=== PATIENT | female | born 1980 | race Two or more races ===

== ENCOUNTER 2019-09-28 13:04 | Emergency (ER) | payer OTHER ==
[~2019-09-28] VITALS: Ht 170.2 cm; Wt 77.1 kg
--- NOTE | 2019-09-28 13:28 | NUR ---
ED Nurse Note: Pt ambulated to ED from home d/t dizziness/light headedness, vomiting and diarrhea since this morning. Pt is AOx4, calm and cooperative. VSS, on RA, afebrile on triage. Pt denies any loss of consciousness. Placed on bed and gown; hooked to engine monitor. ERPA at bedside.
[2019-09-28 13:30] VITALS: BP 126/81
[2019-09-28] MEDS ORDERED: Ketorolac 30mg Inj IV ONE (13:30)
[2019-09-28] MEDS ORDERED: Dicyclomine HCl 10mg/5ml oral soln ORAL ONE (13:30)
--- NOTE | 2019-09-28 13:30 | NUR ---
ED Nurse Note: IV established, meds given; hydration infusing well on site. Blood and urine specimen sent to labs.
[2019-09-28] MEDS ORDERED: Meclizine 25mg tab ORAL PRN (13:45)
[2019-09-28 13:55] LABS: BASOPHILS % (AUTO) 0.9 % (0.0-2.0); EOSINOPHILS % (AUTO) 1.4 % (0.0-3.0); HEMATOCRIT 34.9 % (37.0-47.0); HEMOGLOBIN 11.7 G/DL (12.0-16.0); LYMPHOCYTES % (AUTO) 30.5 % (20.0-45.0); MEAN CORPUSCULAR VOLUME 75 FL (80-99); MONOCYTES % (AUTO) 9.4 % (1.0-10.0); NEUTROPHILS % (AUTO) 57.8 % (45.0-75.0); PLATELET COUNT 355 K/UL (150-450); RED BLOOD COUNT 4.67 M/UL (4.20-5.40); RED CELL DISTRIBUTION WIDTH 11.8 % (11.6-14.8); WHITE BLOOD COUNT 7.1 K/UL (4.8-10.8)
[2019-09-28 13:59] LABS: ANION GAP 11 mmol/L (5-15); APPEARANCE,URINE SLIGHTLY CLOUDY; BILIRUBIN, URINE NEGATIVE (NEGATIVE); BLOOD UREA NITROGEN 12 mg/dL (7-18); CALCIUM 9.1 MG/DL (8.5-10.1); CARBON DIOXIDE 25 MMOL/L (21-32); CHLORIDE 102 MMOL/L (98-107); CREATININE 0.7 MG/DL (0.55-1.30); GLUCOSE, URINE (UA) NEGATIVE (NEGATIVE); KETONES,URINE NEGATIVE (NEGATIVE); LEUKOCYTE ESTERASE ,URINE 1+ (NEGATIVE); NITRITE,URINE NEGATIVE (NEGATIVE); PH,URINE 5 (4.5-8.0); POTASSIUM 3.6 MMOL/L (3.5-5.1); PROTEIN,URINE NEGATIVE (NEGATIVE); SODIUM 138 MMOL/L (136-145); UROBILINOGEN,URINE NORMAL MG/DL (0.0-1.0)
[2019-09-28 14:01] LABS: COLOR,URINE YELLOW
[2019-09-28 14:04] LABS: ALANINE AMINOTRANSFERASE 23 U/L (12-78); ALBUMIN 4.2 G/DL (3.4-5.0); ALBUMIN/GLOBULIN RATIO 1.2 (1.0-2.7); ALKALINE PHOSPHATASE 77 U/L (46-116); ASPARTATE AMINO TRANSFERASE 22 U/L (15-37); BILIRUBIN,TOTAL 0.4 MG/DL (0.2-1.0)
--- NOTE | 2019-09-28 14:26 | Emergency Room Report ---
History of Present Illness General Chief Complaint: Dizziness Source: Patient Present Illness HPI 39-year-old female with no significant past medical history here complaining of 1 day of multiple bouts of nonbloody emesis, nonbloody diarrhea, feeling weak feeling dizzy after emesis. Reports that the dizziness does not get worse with changing of the position of her head however gets worse when standing and sitting. Has not taken medication for symptom relief. Denies any fever and chills, cough and congestion, shortness of breath, loss of taste and smell. Reports that her period ended 2 days ago. Denies . Denies any urinary frequency and urgency. Denies traveling or coming out of house during the pandemic. Appears to be afebrile with normal vital signs. Denies any tobacco smoke, alcohol intake, drug use. Denies any fall or injury. Denies any syncope at this time. Denies any changes of vision, hearing loss and vertigo. Neurovascularly intact and no unilateral generalized weakness noted. Patient speaking in full sentences. Denies any cardiac or neurological history Allergies: Coded Allergies: No Known Allergies (Unverified , 09/28/19) COVID-19 Screening Contact w/high risk pt: No Recent Travel to affected area: No Experienced COVID-19 symptoms?: No COVID-19 Testing performed [place]: No Patient History Past Medical History: see triage record Past Surgical History: none Pertinent Family History: none Last Menstrual Period: 09/23/19 Now: No Immunizations: UTD Reviewed Nursing Documentation: PMH: Agreed; PSxH: Agreed Nursing Documentation-PMH Past Medical History: No Stated History Review of Systems All Other Systems: negative except mentioned in HPI Physical Exam Vital Signs Date Time Temp Pulse Resp B/P (MAP) Pulse Ox O2 Delivery O2 Flow Rate FiO2 09/28/19 13:13 99.1 92 16 126/81 (96) 96 Room Air Sp02 EP Interpretation: reviewed, normal General Appearance: no apparent distress, alert, GCS 15, non-toxic Head: normocephalic, atraumatic Eyes: bilateral eye normal inspection, bilateral eye PERRL ENT: hearing grossly normal, normal pharynx, no angioedema, normal voice Neck: full range of motion, supple/symm/no masses Respiratory: chest non-tender, lungs clear, normal breath sounds, no rhonchi, no respiratory distress, speaking full sentences Cardiovascular #1: regular rate, rhythm, no edema, no gallop Gastrointestinal: normal bowel sounds, non tender, soft, no mass, no organomegaly, no peritonitis, no bruit, non-distended, no guarding, no hernia, no pulsatile mass, no rebound Genitourinary: no CVA tenderness Musculoskeletal: back normal Neurologic: alert, motor strength/tone normal, oriented x3, sensory intact, responsive, speech normal Psychiatric: judgement/insight normal, memory normal, mood/affect normal, no suicidal/homicidal ideation Skin: no rash Lymphatic: no adenopathy Medical Decision Making PA Attestation All my diagnosis and treatment plans were reviewed ad discussed with my supervising physician Dr. Cartwright Diagnostic Impression: Primary Impression: Dizziness Additional Impressions: Nausea & vomiting Acute diarrhea UTI (urinary tract infection) ER Course 39-year-old female with no significant past medical history here complaining of 1 day of multiple bouts of nonbloody emesis, nonbloody diarrhea, feeling weak feeling dizzy after emesis. Reports that the dizziness does not get worse with changing of the position of her head however gets worse when standing and sitting. Has not taken medication for symptom relief. Denies any fever and chills, cough and congestion, shortness of breath, loss of taste and smell. Reports that her period ended 2 days ago. Denies . Denies any urinary frequency and urgency. Denies traveling or coming out of house during the pandemic. Appears to be afebrile with normal vital signs. Denies any tobacco smoke, alcohol intake, drug use. Denies any fall or injury. Denies any syncope at this time. Denies any changes of vision, hearing loss and vertigo. Neurovascularly intact and no unilateral generalized weakness noted. Patient speaking in full sentences. Denies any cardiac or neurological history Ddx considered but are not limited to: Dizziness due to alcohol intoxication, dizziness unspecified, dizziness due to head trauma, dizziness secondary to cardiac reasons Vital signs: are WNL, pt. is afebrile H&PE are most consistent with: Dizziness secondary to nausea vomiting diarrhea , UTI ORDERS: CBC UA, urine test, tox screen, troponin, EKG, chest x-ray, Zofran, omeprazole, dicyclomine, meclizine ER intervention: NS bolus, meclizine, Pepcid, Zofran, Toradol DISCHARGE: At this time pt. is stable for d/c to home. Will provide printed patient care instructions, and any necessary prescriptions. Care plan and follow up instructions have been discussed with the patient prior to discharge. After administration of medication patient reports much better and reports that she is less dizzy. Patient has someone picking her up. Patient was explained that acute causes of dizziness happens about a patient does need to follow primary doctor for further evaluation, possible referral to ENT for ruling out peripheral causes of dizziness as well as referral to neurologist and MRI of brain for ruling out neurological causes of dizziness. However was advised to return to the emergency room with worsening symptoms. At this time I do not suspect any cardiac, electrolyte abnormality that could be contributing to patient's symptoms patient was advised to increase oral hydration most likely symptoms are secondary to gastroenteritis however to be evaluated by primary doctor. Patient was evaluated in the context of the global COVID-19 pandemic, which necessitated consideration that the patient might be at risk for infection with the SARS-COV-2 virus that causes COVID-19. Institutional protocols and algorithms that pertain to the evaluation of patients at risk for COVID-19 are in a state of rapid change based on information relieved by multiple regulatory bodies including the CDC and the federal and state organizations. These policies and algorithms were followed during the patient's care in the ED. EKG Diagnostic Results Rate: normal Rhythm: NSR ST Segments: no acute changes Other Impression No acute ST changes Chest X-Ray Diagnostic Results Chest X-Ray Diagnostic Results : Chest X-Ray Ordered: Yes # of Views/Limited/Complete: 1 View Indication: Other EP Interpretation: Yes PIOTR Xray: Interpretation reviewed, by supervising MD, and agrees with findings. Interpretation: no consolidation, no effusion, no pneumothorax Impression: No acute disease Electronically Signed by: Eliceo Mckeon PA-C Last Vital Signs Date Time Temp Pulse Resp B/P (MAP) Pulse Ox O2 Delivery O2 Flow Rate FiO2 09/28/19 13:30 92 16 Room Air 09/28/19 13:30 99.1 126/81 96 Disposition: HOME, SELF-CARE Condition: Stable Scripts Cephalexin* (KEFLEX*) 500 Mg Capsule 500 MG ORAL EVERY 12 HOURS for 7 Days, #14 CAP 0 Refills Prov: Eliceo Reyna 09/28/19 Meclizine Hcl* (MECLIZINE*) 25 Mg Tablet 25 MG ORAL THREE TIMES A DAY for 5 Days, #15 TAB Prov: Eliceo Reyna 09/28/19 Omeprazole (OMEPRAZOLE) 20 Mg Tablet.dr 20 MG ORAL DAILY, #30 TAB Prov: Eliceo Reyna 09/28/19 Ondansetron (Zofran) 4 Mg Tablet 4 MG ORAL Q6H PRN for Nausea & Vomiting, #14 TAB Prov: Eliceo Reyna 09/28/19 Dicyclomine Hcl* (DICYCLOMINE HCL*) 10 Mg Capsule 10 MG ORAL QID, #20 CAP Prov: Eliceo Reyna 09/28/19 Referrals: NON PHYSICIAN (PCP) Patient Instructions: Diarrhea, Adult, [id number], Dizziness, Nausea and Vomiting, Adult, [id number], Urinary Tract Infection, [id number] Additional Instructions: Increase oral hydration, keep a brat diet, take medication as directed, follow- up with primary doctor, if worsening symptoms return to the emergency room Eliceo Reyna Sep 28, 2019 14:26
[2019-09-28] MEDS ORDERED: ZOFRAN4 M1 ORAL (14:31)
[2019-09-28] MEDS ORDERED: DICYCLOMINE HCL10 MG ORAL (14:31)
[2019-09-28] MEDS ORDERED: MECLIZINE HCL25 MG ORAL (14:31)
[2019-09-28] MEDS ORDERED: OMEPRAZOLE20 M3 ORAL (14:31)
[2019-09-28] MEDS ORDERED: CEPHALEXIN500 MG ORAL (14:45)
[2019-09-28 15:02] VITALS: BP 118/85
--- NOTE | 2019-09-28 15:02 | NUR ---
ER DISCHARGE NOTE: Pt is cleared to be discharged per ERPA, pt is aox4, on room air, with stable vital signs. pt was given dc and prescription instructions, pt was able to verbalize understanding, pt id band and iv site removed without complications. pt is able to ambulate with steady gait. pt took all belongings.
--- NOTE | 2019-09-28 15:23 | Diagnostic Imaging Report ---
EXAM: XR Chest, 1 View CLINICAL HISTORY: PAIN TECHNIQUE: Frontal view of the chest. COMPARISON: None. FINDINGS: Lungs: Unremarkable. No consolidation. Pleural space: Unremarkable. No pneumothorax. Heart: Unremarkable. No cardiomegaly. Mediastinum: Unremarkable. Bones/joints: Unremarkable. IMPRESSION: No acute cardiopulmonary disease.
== END 2019-09-28 15:02 | disposition home or self-care (01) ==
LOC: EMR 13:57
DX: R42 Dizziness and giddiness (principal); R11.2 Nausea with vomiting, unspecified; R19.7 Diarrhea, unspecified; N39.0 Urinary tract infection, site not specified
CPT/HCPCS: 36415; 71045; 80053; 80307; 81003; 81025; 84484; 85025; 93005; 96361; 96374; 96375; G0480; J1885; J2405; J7030; S0028; Z7502; 99284